=== PATIENT | female | born 1950 | race Caucasian/White ===

== ENCOUNTER 2022-02-28 11:00 | Observation (INO) | payer MEDICARE ==
[~2022-02-28] VITALS: Ht 172.7 cm; Wt 77.7 kg
[2022-02-28 09:44] LABS: BASOPHILS % (AUTO) 0.3 % (0.0-5.0); EOSINOPHILS % (AUTO) 1.7 % (0.0-8.0); HEMATOCRIT 44.9 % (36-48); LYMPHOCYTES % (AUTO) 39.4 % (21.0-51.0); MEAN CORPUSCULAR HEMOGLOBIN 27.3 pg (27.0-33.0); MEAN CORPUSCULAR HGB CONC 32.7 g/dL (32.0-36.0); MEAN CORPUSCULAR VOLUME 83.5 fL (79-99); MONOCYTES % (AUTO) 8.7 % (3.0-13.0); NEUTROPHILS % (AUTO) 49.8 % (40.0-77.0); PLATELET COUNT (AUTO) 289 K/uL (130-400); RED BLOOD CELL COUNT(AUTO) 5.38 MIL/uL (4.00-5.50); RED CELL DISTRIBUTION WIDTH 13.6 % (11.0-15.5)
[2022-02-28 09:46] LABS: APPEARANCE,URINE CLEAR (CLEAR); BILIRUBIN,URINE NEGATIVE (NEGATIVE); COLOR,URINE STRAW (YELLOW); GLUCOSE, URINE (UA) NEGATIVE (NEGATIVE); KETONES,URINE NEGATIVE (NEGATIVE); LEUKOCYTE ESTERASE ,URINE MODERATE (NEGATIVE); NITRATE,URINE NEGATIVE (NEGATIVE); OCCULT BLOOD,URINE TRACE-INTACT (NEGATIVE); PH,URINE 6.5 (5.0-8.0); PROTEIN,URINE NEGATIVE (NEGATIVE); UROBILINOGEN,URINE 0.2 mg/dL (0.2-1.0)
[2022-02-28 09:52] LABS: CREATININE 0.8 mg/dL (0.5-1.5); POTASSIUM 4.9 mmol/L (3.5-5.1)
[2022-02-28 09:56] LABS: INR 0.93 (0.85-1.15); PROTHROMBIN TIME 9.8 SEC (9.6-11.6)
[2022-02-28 10:39] LABS: BACTERIA,URINE Rare /HPF (None Seen); RBC,URINE 0-1 /HPF (0-1)
[2022-02-28 10:40] LABS: SQUAMOUS EPITHELIAL CELL,UR Moderate /HPF (0-2)
[2022-03-01 10:25] VITALS: BP 169/88
[2022-03-01] MEDS ORDERED: LOSA100T58 PO (10:40)
[2022-03-01] MEDS ORDERED: ROSU20TA31 PO (10:40)
[2022-03-01] MEDS ORDERED: AMLO-257 PO (10:40)
[2022-03-02] VITALS (26 sets, daily range): BP systolic 117–140; BP diastolic 57–77
[2022-03-02] MEDS: CEFAZOLIN SODIUM 2 GM VIAL IV SCH ×3 (05:00→22:11)
[2022-03-02] MEDS ORDERED: LACTATED RINGERS 1000ML 1,000 ML IV ONE (06:54)
[2022-03-02] MEDS ORDERED: CEFAZOLIN SODIUM 1 GM VIAL ONE (06:54)
[2022-03-02] MEDS ORDERED: FAMOTIDINE 20MG VIAL IV ONE (08:04)
[2022-03-02] MEDS ORDERED: ROPIVACAINE 0.5% 5MG/ML 30ML IJ ONE (08:09)
[2022-03-02] MEDS ORDERED: TRANEXAMIC ACID 1000MG/10ML ONE ×2 (08:09→11:00)
[2022-03-02] MEDS ORDERED: GLYCOPYRROLATE 1 MG/5 ML SYRINGE ONE (08:16)
[2022-03-02] MEDS ORDERED: PROPOFOL 10 MG/ML 20ML VIAL IV ONE (08:16)
[2022-03-02] MEDS ORDERED: ROCURONIUM 10MG/1ML SYR 10 MG/ML ML ONE (08:16)
[2022-03-02] MEDS ORDERED: FENTANYL CITRATE PF 50 MCG/1 ML 2ML VIAL ONE ×2 (08:17→11:42)
[2022-03-02] MEDS ORDERED: ONDANSETRON 4MG INJ ONE (09:02)
[2022-03-02] MEDS: CEFAZOLIN SODIUM 1 GM VIAL ONE ×2 (09:28→09:29)
[2022-03-02] MEDS ORDERED: MEPERIDINE-PF 25 MG/ML SYG ONE ×3 (10:04→11:43)
[2022-03-02] MEDS ORDERED: NEOSTIGMINE 5MG/5ML SYR IV ONE (10:53)
[2022-03-02] MEDS ORDERED: POTASSIUM CHLORIDE 10% ELIXIR 20 MEQ/15 ML UDCUP PO PRN (11:00)
[2022-03-02] MEDS ORDERED: OXYCODONE HCL 5 MG TAB PO PRN (11:00)
[2022-03-02] MEDS ORDERED: ONDANSETRON 4MG INJ IVP PRN (11:00)
[2022-03-02] MEDS ORDERED: LIDOCAINE HCL-MPF 1% 2ML VIAL IV PRN (11:00)
[2022-03-02] MEDS ORDERED: FERROUS FUMARATE 324 MG TABLET PO PRN (11:00)
[2022-03-02] MEDS ORDERED: TRAMADOL HCL 50 MG TABLET PO PRN (11:00)
[2022-03-02] MEDS ORDERED: POTASSIUM CHLORIDE 20MEQ/100ML 100 ML IV PRN (11:00)
[2022-03-02] MEDS ORDERED: DiphenhydrAMINE HCL 50 MG/ML VIAL IVP PRN (11:00)
[2022-03-02] MEDS ORDERED: KETOROLAC 15MG/ML VIAL (15MG/ML) IV PRN (11:00)
[2022-03-02] MEDS ORDERED: CALCIUM CARB 500MG PO PRN (11:00)
[2022-03-02] MEDS ORDERED: PHENYLEPHRINE HCL 10 MG/ML 1ML VIAL IV ONE (11:12)
[2022-03-02] MEDS: INSULIN HUMULIN R 100 UNIT/ML 3ML SQ SCH ×3 (11:30→21:00)
[2022-03-02] MEDS: 0.9%NACL 1000ML 1,000 ML IV SCH ×2 (12:45→21:00)
[2022-03-02] MEDS: ACETAMINOPHEN 500 MG TABLET PO SCH ×2 (12:45→23:16)
[2022-03-02] MEDS: OXYCODONE HCL 5 MG TAB PO PRN ×2 (12:52→23:20)
[2022-03-02] MEDS: CEFAZOLIN SODIUM 1 GM VIAL IVP SCH ×2 (16:42→23:15)
[2022-03-02] MEDS: ASPIRIN 81 MG EC TAB PO SCH (23:16)
[2022-03-02] MEDS: CELECOXIB 200 MG CAP PO SCH (23:17)
[2022-03-02] MEDS: FAMOTIDINE 20MG TAB PO SCH (23:17)
[2022-03-02] MEDS: PREGABALIN 25 MG CAP PO SCH (23:17)
[2022-03-03] VITALS (8 sets, daily range): BP systolic 108–130; BP diastolic 53–70
[2022-03-03 04:16] LABS: CREATININE 0.8 mg/dL (0.5-1.5); POTASSIUM 3.8 mmol/L (3.5-5.1)
[2022-03-03 04:18] LABS: HEMATOCRIT 33.7 % (36-48); MEAN CORPUSCULAR HEMOGLOBIN 27.2 pg (27.0-33.0); MEAN CORPUSCULAR HGB CONC 32.9 g/dL (32.0-36.0); MEAN CORPUSCULAR VOLUME 82.6 fL (79-99); RED BLOOD CELL COUNT(AUTO) 4.08 MIL/uL (4.00-5.50); RED CELL DISTRIBUTION WIDTH 13.8 % (11.0-15.5); WHITE BLOOD COUNT (AUTO) 7.3 K/uL (4.8-10.8)
[2022-03-03] MEDS: 0.9%NACL 1000ML 1,000 ML IV SCH (04:28)
[2022-03-03] MEDS: ACETAMINOPHEN 500 MG TABLET PO SCH ×3 (06:00→20:42)
[2022-03-03] MEDS: INSULIN HUMULIN R 100 UNIT/ML 3ML SQ SCH ×4 (07:30→20:58)
[2022-03-03] MEDS: HOME MEDICATION 1 EACH PO SCH (09:00)
[2022-03-03] MEDS: FAMOTIDINE 20MG TAB PO SCH ×2 (09:02→20:41)
[2022-03-03] MEDS: ASPIRIN 81 MG EC TAB PO SCH ×2 (09:02→20:41)
[2022-03-03] MEDS: LOSARTAN 100 MG TABLET PO SCH (09:02)
[2022-03-03] MEDS: AMLODIPINE 5 MG TAB PO SCH (09:02)
[2022-03-03] MEDS: PREGABALIN 25 MG CAP PO SCH ×2 (09:02→20:41)
[2022-03-03] MEDS: POLYETHYLENE GLYCOL 3350 17 GM POWD.PACK PO SCH (09:02)
[2022-03-03] MEDS: CELECOXIB 200 MG CAP PO SCH ×2 (09:02→20:41)
[2022-03-03] MEDS: OXYCODONE HCL 5 MG TAB PO PRN ×2 (13:43→20:42)
[2022-03-03] MEDS: KCL 20 MEQ ERTAB PO PRN ×2 (14:16→17:24)
[2022-03-04 04:13] VITALS: BP 133/60
[2022-03-04] MEDS: CEFAZOLIN SODIUM 2 GM VIAL IV SCH (05:00)
[2022-03-04] MEDS: INSULIN HUMULIN R 100 UNIT/ML 3ML SQ SCH ×2 (06:36→11:30)
[2022-03-04] MEDS: ACETAMINOPHEN 500 MG TABLET PO SCH (06:39)
[2022-03-04] MEDS: OXYCODONE HCL 5 MG TAB PO PRN (06:52)
[2022-03-04 08:00] VITALS: BP 128/64
[2022-03-04] MEDS: HOME MEDICATION 1 EACH PO SCH (09:00)
[2022-03-04] MEDS: ASPIRIN 81 MG EC TAB PO SCH (10:02)
[2022-03-04] MEDS: POLYETHYLENE GLYCOL 3350 17 GM POWD.PACK PO SCH (10:02)
[2022-03-04] MEDS: PREGABALIN 25 MG CAP PO SCH (10:02)
[2022-03-04] MEDS: CELECOXIB 200 MG CAP PO SCH (10:02)
[2022-03-04] MEDS: LOSARTAN 100 MG TABLET PO SCH (10:02)
[2022-03-04] MEDS: AMLODIPINE 5 MG TAB PO SCH (10:02)
[2022-03-04] MEDS: FAMOTIDINE 20MG TAB PO SCH (10:02)
[2022-03-04] MEDS ORDERED: HYDR-4060 PO (10:40)
[2022-03-04] MEDS ORDERED: AEC81 PO (10:40)
[2022-03-04 12:00] VITALS: BP 133/57
[2022-03-05] MEDS ORDERED: BISACODYL 10 MG SUPP.RECT RC PRN (11:00)
== END 2022-03-04 15:55 | disposition home or self-care (01) ==
LOC: EDSTATUS 11:00 → DAHIP 03-02 06:13 → 4AH 03-02 12:40
PROVIDERS: ADMIT Orthopaedic Surgery; ATTEND Orthopaedic Surgery
DX: M17.12 Unilateral primary osteoarthritis, left knee (principal); Z20.822 Contact with and (suspected) exposure to COVID-19; E11.9 Type 2 diabetes mellitus without complications; E78.00 Pure hypercholesterolemia, unspecified; I10 Essential (primary) hypertension; E78.5 Hyperlipidemia, unspecified; Z79.899 Other long term (current) drug therapy
CPT/HCPCS: 27447; 36415 ×2; 64447; 76942; 80048 ×2; 81001; 82948 ×10; 85025; 85027; 85610; 87088; 87635; 87641; 96374; 96375; 96376; 97039 ×3; 97116 ×3; 97161; 97530 ×3; A4215; A4221; A4222; A4223; A4649 ×4; A4657; A4663; A5120; A9272; C1776; G0378 ×50; J0690 ×4; J1885; J2175 ×3; J2370; J2405; J2704; J2710; J2795; J3010 ×2; J3490 ×4; J7030; J7120

== ENCOUNTER → 2024-06-17 | Outpatient (CLI) | payer MEDICARE ==
[~2024-06-17] MED LIST: AEC81 PO; AMLO-257 PO; HYDR-4060 PO; LOSA100T59 PO; ROSU20TA98 PO
== END | disposition home or self-care (01) ==
LOC: RAH 13:48
PROVIDERS: ATTEND Internal Medicine Cardiovascular Disease
DX: I34.0 Nonrheumatic mitral (valve) insufficiency (principal); I11.9 Hypertensive heart disease without heart failure
CPT/HCPCS: 93306